=== PATIENT | male | born 1985 | race Caucasian/White ===

== ENCOUNTER 2019-09-21 13:51 | Emergency (ER) | payer OTHER ==
[2019-09-21] MEDS ORDERED: Sodium Chloride 0.9% 10 ML Syringe FLUSH PRN (13:59)
--- NOTE | 2019-09-21 13:59 | EDM.PDOC ---
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 Several years after age 12 he was discontinued off of Depakote, and has not seen a neurologist for over 15 or so years. Pt's mother suspects the pt has had a few recent seizure prior to today. Pt denies pain, other than a minor bite to his tongue. He does not recall the events just prior to being found on the floor. EMS reports pt had about a 30 minute postictal phase of confusion. Onset: Today, Unknown/Unsure Duration: Resolved Prior to Arrival Improves with: Reports: None Worsens with: Reports: None Associated Symptoms: Reports: No Other Symptoms - Related Data Allergies Allergy/AdvReac Type Severity Reaction Status Date / Time No Known Allergies Allergy Verified 09/21/19 14:07 Home Meds: Home Meds . [No Known Home Meds] 09/21/19 [History] Past Medical History Neurological History: Reports: Seizure Social & Family History - Family History Family Medical History: Noncontributory - Living Situation & Occupation Living situation: Reports: Alone Occupation: Employed ED ROS GENERAL - Review of Systems Review Of Systems: Comprehensive ROS is negative, except as noted in HPI. - Physical Exam Exam: See Below Exam Limited By: No Limitations General Appearance: Alert, WD/WN, No Apparent Distress Eye Exam: Bilateral Eye: EOMI, Normal Inspection, PERRL Ears: Normal External Exam, Normal Canal, Hearing Grossly Normal, Normal TMs Nose: Normal Inspection, Normal Mucosa, No Blood Throat/Mouth: Normal Lips, Normal Teeth, Normal Gums, Normal Oropharynx, Normal Voice, No Airway Compromise, Evidence of Tongue Biting Head Exam: Atraumatic, Normocephalic Neck: Normal Inspection, Supple, Non-Tender, Full Range of Motion Respiratory/Chest: No Respiratory Distress, Lungs Clear, Normal Breath Sounds, No Accessory Muscle Use, Chest Non-Tender Cardiovascular: Normal Peripheral Pulses, Regular Rate, Rhythm, No Edema, No Gallop, No JVD, No Murmur, No Rub, Tachycardia GI/Abdominal: Normal Bowel Sounds, Soft, Non-Tender, No Organomegaly, No Distention, No Abnormal Bruit, No Mass Neuro Exam (Abbreviated): Alert, Oriented, CN II-XII Intact, Normal Cognition, Normal Gait, No Motor/Sensory Deficits, Confused (Postictal for approx. 30 mins. total from initial contact with EMS.) Back Exam: Normal Inspection, Full Range of Motion, NT Extremities: Normal Inspection, Normal Range of Motion, Non-Tender, No Pedal Edema, Normal Capillary Refill Psychiatric: Normal Affect, Normal Mood Skin Exam: Warm, Dry, Intact, Normal Color, No Rash EKG INTERPRETATION EKG Date: 09/21/19 Time: 13:54 Rhythm: Other (sinus tachycardia) Rate (Beats/Min): 136 [place]: Normal P-Wave: Present QRS: Normal ST-T: Depressed (minimal ST depression, diffuse leads.) QT: Normal Course - Vital Signs Last Recorded V/S: Last Vital Signs Temp 98.3 F 09/21/19 13:54 Pulse 146 H 09/21/19 13:54 Resp 18 09/21/19 13:54 BP 136/78 09/21/19 13:54 Pulse Ox 90 L 09/21/19 13:54 - Orders/Labs/Meds Orders: Active Orders 24 hr Category Date Time Status Blood Glucose Check, Bedside [RC] ONETIME Care 09/21/19 13:59 Active EKG 12 Lead [EKG Documentation Completion] [RC] STAT Care 09/21/19 13:59 Active Peripheral IV Care [RC] . DIRECTED Care 09/21/19 13:59 Active CULTURE URINE [RM] Stat Lab 09/21/19 14:13 Received Peripheral IV Insertion Adult [OM.PC] Stat Oth 09/21/19 13:59 Ordered Labs: Laboratory Tests 09/21/19 09/21/19 09/21/19 Range/Units 14:00 14:00 14:10 WBC 10.5 H (5.0-10.0) 10^3/uL RBC 4.96 (4.6-6.2) 10^6/uL Hgb 16.3 (14.0-18.0) g/dL Hct 43.9 (40.0-54.0) % MCV 88.5 (80-100) fL MCH 32.9 (27.0-34.0) pg MCHC 37.1 H (33.0-35.0) g/dL Plt Count 210 (150-450) 10^3/uL Neut % (Auto) 55.5 (42.2-75.2) % Lymph % (Auto) 31.9 (20.5-50.1) % [place] % (Auto) 11.7 H (2-8) % Eos % (Auto) 0.4 L (1.0-3.0) % Baso % (Auto) 0.5 (0.0-1.0) % Sodium 140 (135-145) mmol/L Potassium 4.2 (3.6-5.0) mmol/L Chloride 102 (101-111) mmol/L Carbon Dioxide 23.0 (21.0-31.0) mmol/L Anion Gap 19.2 BUN 17 (7-18) mg/dL Creatinine 1.2 (0.6-1.3) mg/dL Est Cr Clr Drug Dosing TNP Estimated GFR (MDRD) > 60 BUN/Creatinine Ratio 14.16 Glucose 104 (74-105) mg/dL POC Glucose 90 (70-105) mg/dl Calcium 9.6 (8.4-10.2) mg/dl Total Bilirubin 1.0 (0.2-1.0) mg/dL AST 42 (10-42) IU/L ALT 51 (10-60) IU/L Alkaline Phosphatase 74 (42-121) IU/L Lactate Dehydrogenase 178 (91-180) IU/L Creatine Kinase 264 H (26-174) IU/L Troponin I < 0.02 (0.00-0.02) ng/ml Total Protein 7.4 (6.7-8.2) g/dl Albumin 4.5 (3.2-5.5) g/dl Globulin 2.9 Albumin/Globulin Ratio 1.55 Urine Color (YELLOW) Urine Appearance (CLEAR) Urine pH (5.0-9.0) Ur Specific [place] (1.005-1.030) Urine Protein (NEGATIVE) Urine Glucose (UA) (NEGATIVE) Urine Ketones (NEGATIVE) Urine Occult Blood (NEGATIVE) Urine Nitrite (NEGATIVE) Urine Bilirubin (NEGATIVE) Urine Urobilinogen (0.2-1.0) mg/dL Ur Leukocyte Esterase (NEGATIVE) Urine RBC /HPF Urine WBC (0-5/HPF) /HPF Ur Epithelial Cells (NOT SEEN) /HPF Amorphous Sediment (NOT SEEN) /HPF Urine Bacteria (0-FEW/HPF) /HPF Urine Mucus (NOT SEEN) /LPF Urine Opiates Screen (NEGATIVE) Ur Oxycodone Screen (NEGATIVE) Urine Methadone Screen (NEGATIVE) Ur Barbiturates Screen (NEGATIVE) U Tricyclic Antidepress (NEGATIVE) Ur Phencyclidine Scrn (NEGATIVE) Ur Amphetamine Screen (NEGATIVE) U Methamphetamines Scrn (NEGATIVE) Urine MDMA Screen (NEGATIVE) U Benzodiazepines Scrn (NEGATIVE) Urine Cocaine Screen (NEGATIVE) U Marijuana (THC) Screen (NEGATIVE) Ethyl Alcohol < 5 mg/dL 09/21/19 09/21/19 Range/Units 14:13 14:13 WBC (5.0-10.0) 10^3/uL RBC (4.6-6.2) 10^6/uL Hgb (14.0-18.0) g/dL Hct (40.0-54.0) % MCV (80-100) fL MCH (27.0-34.0) pg MCHC (33.0-35.0) g/dL Plt Count (150-450) 10^3/uL Neut % (Auto) (42.2-75.2) % Lymph % (Auto) (20.5-50.1) % [place] % (Auto) (2-8) % Eos % (Auto) (1.0-3.0) % Baso % (Auto) (0.0-1.0) % Sodium (135-145) mmol/L Potassium (3.6-5.0) mmol/L Chloride (101-111) mmol/L Carbon Dioxide (21.0-31.0) mmol/L Anion Gap BUN (7-18) mg/dL Creatinine (0.6-1.3) mg/dL Est Cr Clr Drug Dosing Estimated GFR (MDRD) BUN/Creatinine Ratio Glucose (74-105) mg/dL POC Glucose (70-105) mg/dl Calcium (8.4-10.2) mg/dl Total Bilirubin (0.2-1.0) mg/dL AST (10-42) IU/L ALT (10-60) IU/L Alkaline Phosphatase (42-121) IU/L Lactate Dehydrogenase (91-180) IU/L Creatine Kinase (26-174) IU/L Troponin I (0.00-0.02) ng/ml Total Protein (6.7-8.2) g/dl Albumin (3.2-5.5) g/dl Globulin Albumin/Globulin Ratio Urine Color Dark yellow (YELLOW) Urine Appearance Clear (CLEAR) Urine pH 5.5 (5.0-9.0) Ur Specific [place] >= 1.030 (1.005-1.030) Urine Protein 30 H (NEGATIVE) Urine Glucose (UA) Negative (NEGATIVE) Urine Ketones Negative (NEGATIVE) Urine Occult Blood Negative (NEGATIVE) Urine Nitrite Negative (NEGATIVE) Urine Bilirubin Negative (NEGATIVE) Urine Urobilinogen 0.2 (0.2-1.0) mg/dL Ur Leukocyte Esterase Trace H (NEGATIVE) Urine RBC 0-5 /HPF Urine WBC 5-10 H (0-5/HPF) /HPF Ur Epithelial Cells Rare (NOT SEEN) /HPF Amorphous Sediment Few (NOT SEEN) /HPF Urine Bacteria Rare (0-FEW/HPF) /HPF Urine Mucus Few H (NOT SEEN) /LPF Urine Opiates Screen Negative (NEGATIVE) Ur Oxycodone Screen Negative (NEGATIVE) Urine Methadone Screen Negative (NEGATIVE) Ur Barbiturates Screen Negative (NEGATIVE) U Tricyclic Antidepress Negative (NEGATIVE) Ur Phencyclidine Scrn Negative (NEGATIVE) Ur Amphetamine Screen Negative (NEGATIVE) U Methamphetamines Scrn Negative (NEGATIVE) Urine MDMA Screen Negative (NEGATIVE) U Benzodiazepines Scrn Negative (NEGATIVE) Urine Cocaine Screen Negative (NEGATIVE) U Marijuana (THC) Screen Negative (NEGATIVE) Ethyl Alcohol mg/dL Meds: Medications Discontinued Medications Generic Name Dose Route Start Last Admin Trade Name Freq PRN Reason Stop Dose Admin Sodium Chloride 10 ml 09/21/19 13:59 09/21/19 14:42 Saline Flush FLUSH 10 ml ASDIRECTED PRN Administration Keep Vein Open Departure - Departure Time of Disposition: 16:01 Disposition: Home, Self-Care 01 Condition: Fair Clinical Impression: Seizure - Discharge Information *PRESCRIPTION DRUG MONITORING PROGRAM REVIEWED*: No *COPY OF PRESCRIPTION DRUG MONITORING REPORT IN PATIENT DIEGO: No Instructions: Seizure, Adult, [id number] Forms: ED Department Discharge Additional Instructions: Rx: Keppra 500mg Call [facility] today to schedule an ER follow up appointment with Lisa Brady or Mariann White for recheck and a referral to Dr. Enamorado at [facility]. Do not drive until cleared to do so by the neurologist. Sepsis Event Note - Evaluation Sepsis Screening Result: No Definite Risk - Focused Exam Vital Signs: Vital Signs Temp Pulse Resp BP Pulse Ox 09/21/19 13:54 98.3 F 146 H 18 136/78 90 L Date Exam was Performed: 09/21/19 Time Exam was Performed: 17:37 - My Orders Last 24 Hours: My Active Orders 09/21/19 13:59 Blood Glucose Check, Bedside [RC] ONETIME EKG 12 Lead [EKG Documentation Completion] [RC] STAT Peripheral IV Care [RC] . DIRECTED Peripheral IV Insertion Adult [OM.PC] Stat 09/21/19 14:13 CULTURE URINE [RM] Stat - Assessment/Plan Last 24 Hours: My Active Orders 09/21/19 13:59 Blood Glucose Check, Bedside [RC] ONETIME EKG 12 Lead [EKG Documentation Completion] [RC] STAT Peripheral IV Care [RC] . DIRECTED Peripheral IV Insertion Adult [OM.PC] Stat 09/21/19 14:13 CULTURE URINE [RM] Stat
[2019-09-21 14:31] LABS: ANION GAP 19.2; CHLORIDE,CL 102 mmol/L (101-111); SODIUM,NA 140 mmol/L (135-145)
--- NOTE | 2019-09-21 15:28 | CT ---
EXAMINATION: Head wo Cont SEX: Male AGE: 34 years CLINICAL HISTORY: 34-year-old male emergency department with ALTERED MENTAL STATUS. Scan technique: Volume acquisition of data emergency unenhanced CT scan of the head and brain obtained with patient lying supine on the Siemens multi slice CT scanner [place], [place]. All data archived in the PACS system for storage, reformatting axial/sagittal/coronal planes and study (brain/bone windows). Interpretation: 1. Uniformly thick bony calvarium. No sign of pathologic skeletal lesion, skull fracture, underlying brain contusion or epidural/subdural hematoma. 2. Symmetric clear pneumatization of the paranasal and mastoid sinuses. No inflammatory changes or soft tissue masses. No foreign bodies. 3. Symmetric montero-white matter pattern and underlying mirror-image normal ventricular system. Physiologic calcifications. 4. No supratentorial or posterior fossa mass lesion. No hydrocephalus. 5. No focal areas of ischemic infarct or signs of encephalomalacia. No arachnoid cyst. 6. No sign of acute intracerebral/intraventricular/subarachnoid bleed. CONCLUSION: Negative emergency unenhanced CT scan head and brain. INTERPRETATION: 1. CONCLUSION:
== END 2019-09-21 16:20 | disposition home or self-care (01) ==
LOC: DL.ED 13:51
DX: R56.9 Unspecified convulsions (principal)
CPT/HCPCS: 36415; 70450; 80053; 80305-QW; 81001; 82550; 82962; 83615; 84484; 85025; 87086; 87088; 93005; 99284-25; G0480